=== PATIENT | female | born 1990 | race Hispanic/Latino ===

== ENCOUNTER 2016-09-26 20:02 | Emergency (ER) | payer OTHER ==
[~2016-09-26] VITALS: Ht 149.9 cm; Wt 65.8 kg
[2016-09-26] MEDS ORDERED: NAPROXEN 250 MG TAB PO ONE (22:30)
[2016-09-26] MEDS ORDERED: NITR100C2 PO (23:27)
[2016-09-26] MEDS ORDERED: METR500T10 PO (23:27)
[2016-09-26] MEDS ORDERED: metroNIDAZOLE (FLAGYL) 500 MG TAB PO ONE (23:30)
[2016-09-26] MEDS ORDERED: NITROFURANTOIN (MACROBID) 100 MG CAP PO ONE (23:30)
[2016-09-26 23:38] VITALS: BP 116/54
== END 2016-09-26 23:42 | disposition home or self-care (01) ==
LOC: M ED 21:31
DX: N39.0 Urinary tract infection, site not specified (principal); N76.0 Acute vaginitis

== ENCOUNTER → 2016-10-05 | Outpatient (CLI) | payer OTHER ==
[~2016-10-05] MED LIST: IBUP-1114 PO; METR500T10 PO; NITR100C2 PO; NORCOTAB PO
--- NOTE | 2016-10-05 21:07 | REP ---
ABDOMEN: HISTORY: Epigastric pain, COMPARISON: None. FINDINGS: KUB shows the intestinal gas pattern to be nonspecific. The organ silhouettes insofar as delineated are unremarkable. There is no evidence of free intraperitoneal air. IMPRESSION: Nonspecific. Signed by Evin Luna DO 10/06/2016 11:45 A
== END ==
LOC: M LRY 19:15
PROVIDERS: ATTEND Nurse Practitioner Family
DX: R10.13 Epigastric pain (principal); R11.0 Nausea
CPT/HCPCS: 74000; G0463

== ENCOUNTER 2016-10-18 17:09 | Emergency (ER) | payer OTHER ==
[~2016-10-18] VITALS: Ht 149.9 cm; Wt 63.5 kg
[~2016-10-18 17:09] MED LIST changes: -IBUP-1114 PO; -NORCOTAB PO
[2016-10-18] MEDS ORDERED: IBUP-1114 PO (17:55)
[2016-10-18 22:31] LABS: CONTROL LINE UCG INT CTR LINE PRESENT
[2016-10-18 23:11] VITALS: BP 113/67
[2016-10-18] MEDS ORDERED: NORCOTAB PO (23:13)
[2016-10-18] MEDS ORDERED: NORCO, ANEXSIA 5/325MG TABLET (HYDROcodone/ACETAMINOPHEN) PO ONE (23:15)
== END 2016-10-18 23:46 | disposition home or self-care (01) ==
LOC: M ED 18:05
DX: N92.1 Excessive and frequent menstruation with irregular cycle (principal)

== ENCOUNTER 2016-12-31 16:25 | Emergency (ER) | payer OTHER ==
[~2016-12-31] VITALS: Ht 149.9 cm; Wt 75.7 kg
[~2016-12-31 16:25] MED LIST changes: +IBUP-1114 PO; +NORCOTAB PO
[2016-12-31] MEDS ORDERED: NS 500 ML IV ONE (17:15)
[2016-12-31 17:32] LABS: BASO # 0.1 K/mm3 (0.0-0.2); BASO % 0.7 % (0.0-1.0); EOS # 0.2 K/mm3 (0.0-0.50); EOS % 1.6 % (0.0-3.0); LARGE UNSTAINED CELL # 0.1 K/mm3 (0.0-0.4); LYMPH # 2.5 K/mm3 (1.5-6.5); LYMPH % 19.1 % (24.0-44.0); MEAN CORPUSCULAR HEMOGLOBIN 30.4 pg (27.0-33.0); MEAN CORPUSCULAR HGB CONC 33.8 g/dl (32.0-36.5); MEAN CORPUSCULAR VOLUME 90.1 fl (80.0-96.0); MONO # 0.4 K/mm3 (0.0-0.8); MONO % 3.4 % (0.0-5.0); NEUTROPHILS # 9.7 K/mm3 (1.8-7.7); NEUTROPHILS % 74.2 % (36.0-66.0); PLATELET COUNT, AUTOMATED 342 k/mm3 (150-450); RED CELL DISTRIBUTION WIDTH 11.8 % (11.5-14.5); WHITE BLOOD COUNT 13.1 K/mm3 (4.0-10.0)
[2016-12-31] MEDS ORDERED: MORPHINE 2 MG/ML 1ML SYRINGE IV ONE (17:45)
[2016-12-31 18:07] LABS: ALBUMIN 3.3 GM/DL (3.2-5.2); ALBUMIN/GLOBULIN RATIO 0.77 (1.00-1.93); ALKALINE PHOSPHATASE 77 U/L (45-117); ALT/SGPT 20 U/L (12-78); ANION GAP 8 MEQ/L (8-16); AST/SGOT 12 U/L (15-37); BILIRUBIN,DIRECT < 0.1 MG/DL (0.0-0.2); BILIRUBIN,TOTAL 0.2 MG/DL (0.2-1.0); BLOOD UREA NITROGEN 9 MG/DL (7-18); CALCIUM LEVEL 8.3 MG/DL (8.5-10.1); CARBON DIOXIDE LEVEL 26 MEQ/L (21-32); CHLORIDE LEVEL 103 MEQ/L (98-107); CREATININE FOR GFR 0.71 MG/DL (0.55-1.02); GLOMERULAR FILTRATION RATE > 60.0 (>60); GLUCOSE, FASTING 141 MG/DL (70-105); HCG, SERUM QUANTITATIVE 19479 MIU/ML; POTASSIUM SERUM 3.2 MEQ/L (3.5-5.1); SODIUM LEVEL 137 MEQ/L (136-145); TOTAL PROTEIN 7.6 GM/DL (6.4-8.2)
[2016-12-31] MEDS ORDERED: POTASSIUM CHLORIDE 10 MEQ SR TABLET PO ONE (19:45)
[2016-12-31 20:46] VITALS: BP 110/67
== END 2016-12-31 20:49 | disposition home or self-care (01) ==
LOC: M ED 17:50
DX: O20.0 Threatened abortion (principal); O34.81 Maternal care for other abnormalities of pelvic organs, first trimester; N83.291 Other ovarian cyst, right side; R10.9 Unspecified abdominal pain; Z87.59 Personal history of other complications of pregnancy, childbirth and the puerperium; Z3A.01 Less than 8 weeks gestation of pregnancy

== ENCOUNTER 2017-01-19 09:40 | Emergency (ER) | payer OTHER ==
[~2017-01-19] VITALS: Ht 144.8 cm; Wt 76.5 kg
[~2017-01-19 09:40] MED LIST changes: +METR1TAB66 PO; -METR500T10 PO
[2017-01-19] MEDS ORDERED: NS 500 ML IV ONE (11:00)
[2017-01-19 11:29] LABS: BASO % 0.4 % (0.0-1.0); EOS # 0.2 K/mm3 (0.0-0.50); EOS % 2.2 % (0.0-3.0); LARGE UNSTAINED CELL # 0.1 K/mm3 (0.0-0.4); LARGE UNSTAINED CELL % 0.8 % (0.0-4.0); LYMPH # 1.8 K/mm3 (1.5-6.5); LYMPH % 18.9 % (24.0-44.0); MEAN CORPUSCULAR HEMOGLOBIN 31.1 pg (27.0-33.0); MEAN CORPUSCULAR HGB CONC 35.2 g/dl (32.0-36.5); MEAN CORPUSCULAR VOLUME 88.1 fl (80.0-96.0); MONO # 0.3 K/mm3 (0.0-0.8); MONO % 3.3 % (0.0-5.0); NEUTROPHILS # 6.9 K/mm3 (1.8-7.7); NEUTROPHILS % 74.3 % (36.0-66.0); PLATELET COUNT, AUTOMATED 314 k/mm3 (150-450); RED CELL DISTRIBUTION WIDTH 11.9 % (11.5-14.5); WHITE BLOOD COUNT 9.3 K/mm3 (4.0-10.0)
[2017-01-19 11:59] LABS: ANION GAP 6 MEQ/L (8-16); BLOOD UREA NITROGEN 5 MG/DL (7-18); CALCIUM LEVEL 8.4 MG/DL (8.5-10.1); CARBON DIOXIDE LEVEL 27 MEQ/L (21-32); CHLORIDE LEVEL 105 MEQ/L (98-107); CREATININE FOR GFR 0.55 MG/DL (0.55-1.02); GLOMERULAR FILTRATION RATE > 60.0 (>60); GLUCOSE, FASTING 99 MG/DL (70-105); HCG, SERUM QUANTITATIVE 62271 MIU/ML; POTASSIUM SERUM 3.4 MEQ/L (3.5-5.1); SODIUM LEVEL 138 MEQ/L (136-145)
--- NOTE | 2017-01-19 12:11 | REP ---
Clinical: Dating and viability. Technique: Transabdominal first trimester obstetrical ultrasound with color Doppler evaluation. Findings: Single live early intrauterine is appreciated. Gestational sac with yolk sac and pole identified. [place]-rump length of 23 mm corresponds to 9 weeks 0 days gestational age with estimated date of delivery 08/24/2017 . heart rate equals 171 beats per minute. No gross abnormalities are identified. Impression: Single live early intrauterine at 9 weeks 0 days gestational age. Complete anatomical assessment should be performed and 19-20 weeks. Signed by Nash Keith MD 01/19/2017 12:03 P
[2017-01-19 13:21] VITALS: BP 98/52
== END 2017-01-19 13:22 | disposition home or self-care (01) ==
LOC: M ED 09:40
DX: O20.9 Hemorrhage in early pregnancy, unspecified (principal); Z3A.09 9 weeks gestation of pregnancy